=== PATIENT | female | born 1980 | race Caucasian/White ===

== ENCOUNTER → 2021-03-14 14:25 | Outpatient (CLI) | payer MEDICAID, SELFPAY ==
[2021-03-14 15:28] LABS: Coronavirus 19, PCR Not Detected (NotDetected); Influenza A, PCR Not Detected (NotDetected); Influenza B, PCR Not Detected (NotDetected)
== END ==
PROVIDERS: PCP Pediatrics; Visit Provider Nurse Practitioner Family
DX: Z11.52 Encounter for screening for COVID-19 (principal)
CPT/HCPCS: C9803; U0003; U0005

== ENCOUNTER → 2021-04-14 18:04 | Outpatient (CLI) | payer BC, MEDICAID, SELFPAY | PROVIDERS: PCP Pediatrics; Visit Provider Nurse Practitioner | DX: Z20.822 Contact with and (suspected) exposure to COVID-19 (principal) | CPT/HCPCS: C9803; U0003; U0005 ==

== ENCOUNTER 2021-04-16 18:05 | Emergency (ER) | payer BC, SELFPAY ==
[2021-04-16 19:12] VITALS: BP 121/75; PULSE 85; RESP 16; TEMP 37.1; O2SAT 98; BMI 32.3
--- NOTE | 2021-04-16 19:45 | HMH.EDUTC ---
[facility] [place] Clinical Impression: Exposure to COVID-19 virus, Viral syndrome Disposition: Home, Self-Care Condition on Discharge: Good Instructions: DI for COVID-19 (Suspected or Confirmed ), Preventing the Spread of Coronavirus Discharge Instructions Additional Instructions: Drink plenty of fluids. Take tylenol or ibuprofen for pain or fever. Take the medications as directed. Follow up with your regular doctor. GO TO THE ER FOR ANY WORSENING SYMPTOMS Quarantine until you know the results of your covid-19 test. Notify your school or workplace of your results and follow their instructions regarding return to work/school. The cough medication (promethazine dm) will make you drowsy, so don't drive or operate heavy machinery after taking it. Prescriptions: Albuterol Sulfate [Albuterol Sulfate Hfa] 2 puffs IH Q6HP PRN 30 Days #1 each PRN Reason: Shortness Of Breath Transmission Status: Pending to [facility] #[id number] Promethazine/Dextromethorphan [Promethazine-Dm Syrup] 5 ml PO Q6HP PRN #240 ml PRN Reason: Cough Transmission Status: Pending to [facility] #[id number] Ondansetron [Zofran 4mg ODT] 4 mg PO Q8HP PRN #20 tab PRN Reason: Nausea Transmission Status: Pending to [facility] #[id number] methylPREDNISolone [Medrol] 4 mg PO DIRECTED 6 Days #21 packet Transmission Status: Pending to [facility] #[id number] Referrals: Sukhwinder Selby [Primary Care Provider] - Forms: Work/School Release Time of Disposition: 19:58 Medical Decision Making - Medical Records Medical records reviewed: No: I reviewed the patient's medical records. - Coy Inquiry Pt receiving controlled substance: No Vital Signs: 04/16/21 19:12 Temperature 98.8 F Temperature Source Oral Pulse Rate [Left] 85 Respiratory Rate 16 Blood Pressure [Right Arm] 121/75 Blood Pressure Mean [Right Arm] 90 02 Sat by Pulse Oximetry 98 [facility] [place] H[place] - General Stated complaint: covid test sore throat,CARRERA,fever Time Seen by Provider: 04/16/21 19:46 Mode of Arrival: Ambulatory Source of Information: Patient Limitations: No Limitations Description of Symptoms (Recalled from Triage Doc. by RN): PT C/O A SEVERE CARRERA, FEVER AND OCCASIONAL SOA. INDIRECT EXPOSURE TO COVID. HEENT Symptoms (Recalled from RN notes): Yes Resp Symptoms (Recalled from RN notes): No Skin Symptoms (Recalled from RN notes): No MS Symptoms (Recalled from RN notes): No Functional Status (Recalled from RN notes): WNL - History of Present Illness Provider Complaint: She was exposed to covid-19 5 days ago. She started to feel bad 3 days ago and she tested negative for covid-19 then. She has progressively felt worse, so she needs to get retested. She denies significant shortness of breath. - Related Data Previous Rx's Medication Instructions Recorded Albuterol Sulfate [Albuterol 2 puffs IH Q6HP PRN 30 Days #1 each 04/16/21 Sulfate Hfa] Ondansetron [Zofran 4mg ODT] 4 mg PO Q8HP PRN #20 tab 04/16/21 Promethazine/Dextromethorphan 5 ml PO Q6HP PRN #240 ml 04/16/21 [Promethazine-Dm Syrup] methylPREDNISolone [Medrol] 4 mg PO DIRECTED 6 Days #21 04/16/21 packet Allergies Allergy/AdvReac Type Severity Reaction Status Date / Time No Known Allergies Allergy Verified 04/16/21 19:15 - Worker's Comp Is this a Worker's Comp case?: No [facility] History - Hepatitis A Screen Drug use history?: No High risk sexual behaviors?: No History of sexually transmitted infection?: No Currently employed?: No Childcare worker?: No Do you have indoor plumbing?: Yes Do you have electricity?: Yes Attestation statement:: This patient has been screened for Hepatitis A risk factors. I have reviewed the patient's past medical history: Yes ROS Obtained: Yes All systems reviewed & no additional complaints - Constitutional Constitutional: Reports as per HPI - Eyes Eyes: Denies eye discharge - ENT Ears, Nose, Mouth, and Throat: Re
[2021-04-16 20:03] VITALS: BP 121/75; PULSE 85; RESP 16; TEMP 37.1
== END 2021-04-16 20:04 | disposition home or self-care (01) ==
PROVIDERS: Emergency Provider Nurse Practitioner Family; PCP Pediatrics
DX: Z20.822 Contact with and (suspected) exposure to COVID-19 (principal); B34.9 Viral infection, unspecified
CPT/HCPCS: 99202; C9803; G0463; U0003; U0005

== ENCOUNTER → 2021-05-15 11:39 | Outpatient (CLI) | payer BC, SELFPAY ==
[2021-05-15 13:48] LABS: Blood Urea Nitrogen 14 mg/dl (7-17); Calcium 8.8 mg/dl (8.4-10.2); Carbon Dioxide 25 mmol/L (22.0-30.0); Estimated Glomerular Filt Rate 70 ml/min (>60); GFR (African American) 84 ML/MIN (>60); Glucose 83 mg/dl (74-100)
[2021-05-15 13:57] LABS: Anion Gap 13.5 mEq/L (5-15); Chloride 105 mmol/L (98-107); Potassium 4.5 mmoL/L (3.5-5.1); Sodium 139 mmol/L (136-145)
[2021-05-15 20:15] LABS: Basophils % 0.4 % (0.1-2.0); Eosinophils # 0.1 K/mm3 (0.0-0.4); Eosinophils % 0.9 % (0.1-12.0); Hematocrit 40.5 % (37.0-47.0); Hemoglobin 13.5 g/dL (12.2-16.2); Lymphocytes % 24.4 % (10-50); Mean Corpuscular HGB Conc 33.3 g/dL (31.8-35.4); Mean Corpuscular Hemoglobin 28.4 pg (27.0-31.2); Mean Corpuscular Volume 85.5 fl (81-99); Mean Platelet Volume 8.7 fl (7.4-10.4); Monocytes # 0.4 K/mm3 (0.1-1.0); Neutrophils # 5.6 K/mm3 (1.8-7.8); Neutrophils % 69.2 % (37.0-80.0); Platelet Count 289 K/mm3 (142-424); Red Blood Count 4.74 M/mm3 (4.20-5.40); Red Cell Distribution Width 14.9 % (11.5-17.5); White Blood Count 8.1 K/mm3 (4.8-10.8)
== END ==
PROVIDERS: Visit Provider Surgery
DX: Z01.812 Encounter for preprocedural laboratory examination (principal); Z11.52 Encounter for screening for COVID-19
CPT/HCPCS: 36415; 80048; 85025; C9803; U0003; U0005

== ENCOUNTER → 2022-03-10 12:22 | Outpatient (CLI) | payer BC, SELFPAY | PROVIDERS: PCP Nurse Practitioner Family; Visit Provider Nurse Practitioner Family | DX: G47.30 Sleep apnea, unspecified (principal); R06.83 Snoring | CPT/HCPCS: G0399 ==

== ENCOUNTER → 2022-08-19 09:34 | Outpatient (CLI) | payer BC, MEDICAID, SELFPAY ==
--- NOTE | 2022-08-19 09:38 | US_ITS ---
FINAL REPORT TECHNIQUE: Real-time grayscale and color ultrasound of the thyroid was performed. CLINICAL HISTORY: NECK DISCOMFORT COMPARISON: None FINDINGS: The thyroid gland is mildly enlarged and measures 49 mm on the right and 52 mm on the left. The isthmus measures 3 mm. Nodules: Right 8 x 11 x 7 mm solid hypoechoic TR 4 nodule. Right 7 x 6 x 5 mm solid hypoechoic TR 4 nodule. Left 7 x 7 x 6 mm solid hypoechoic TR 4 nodule. Left 7 x 6 x 4 mm solid hypoechoic TR 4 nodule. IMPRESSION: Right TR 4 nodule measuring 11 mm. Recommend 12 month follow-up. Reviewed, Interpreted and Dictated by Conor Greenwood III, MD Transcribed by Ninoska Wolff Authenticated and [facility]
[2022-08-19 10:47] LABS: Basophils % 0.4 % (0.1-2.0); Eosinophils # 0.1 K/mm3 (0.0-0.4); Hematocrit 43.2 % (37.0-47.0); Hemoglobin 14.2 g/dL (12.2-16.2); Lymphocytes # 1.7 K/mm3 (0.7-4.5); Lymphocytes % 23.7 % (10-50); Mean Corpuscular HGB Conc 32.8 g/dL (31.8-35.4); Mean Corpuscular Hemoglobin 29.7 pg (27.0-31.2); Mean Corpuscular Volume 90.6 fl (81-99); Mean Platelet Volume 8.2 fl (7.4-10.4); Monocytes # 0.3 K/mm3 (0.1-1.0); Monocytes % 4.1 % (1.7-9.3); Neutrophils # 5.1 K/mm3 (1.8-7.8); Neutrophils % 70.8 % (37.0-80.0); Platelet Count 300 K/mm3 (142-424); Red Blood Count 4.77 M/mm3 (4.20-5.40); Red Cell Distribution Width 13.6 % (11.5-17.5); White Blood Count 7.1 K/mm3 (4.8-10.8)
[2022-08-19 11:09] LABS: Hemoglobin A1C 5.2 % (4.0-6.0)
[2022-08-19 11:22] LABS: Alanine Aminotransferase 28 U/L (12-78); Albumin Level 4.4 g/dl (3.5-5.0); Albumin/Globulin Ratio 1.9 (1.1-1.8); Alkaline Phosphatase 81 U/L (38-126); Aspartate Amino Transferase 28 U/L (14-36); Bilirubin,Total 0.5 mg/dl (0.2-1.3); Blood Urea Nitrogen 18 mg/dl (7-17); Calcium 9.1 mg/dl (8.4-10.2); Carbon Dioxide 29 mmol/L (22.0-30.0); Estimated Glomerular Filt Rate 69 ml/min (>60); GFR (African American) 84 ML/MIN (>60); Globulin 2.3 g/dL (1.3-3.2); Glucose 97 mg/dl (74-100); Total Protein,Serum 6.7 g/dl (6.3-8.2)
[2022-08-19 11:53] LABS: Thyroid Stimulating Hormone 0.02 uIU/mL (0.465-4.68)
[2022-08-19 14:28] LABS: Anion Gap 16.8 mEq/L (5-15); Chloride 100 mmol/L (98-107); Potassium 4.8 mmoL/L (3.5-5.1); Sodium 141 mmol/L (136-145)
[2022-08-19 17:02] LABS: Free T4 (Free Thyroxine) 0.85 ng/dl (0.78-2.19)
== END ==
PROVIDERS: PCP Nurse Practitioner Family; Visit Provider Nurse Practitioner Family
DX: M54.2 Cervicalgia (principal); E01.0 Iodine-deficiency related diffuse (endemic) goiter; E66.9 Obesity, unspecified; Z68.35 Body mass index [BMI] 35.0-35.9, adult; Z86.39 Personal history of other endocrine, nutritional and metabolic disease
CPT/HCPCS: 36415; 76536; 80053; 83036; 84439; 84443; 85025

== ENCOUNTER 2023-01-26 10:00 | Outpatient (RCR) | payer BC, MEDICAID, SELFPAY ==
--- NOTE | 2022-11-17 15:07 | HMH.OTOPEV ---
OT Inpatient Evaluation Rehab OT Outpatient Eval Start: 11/17/22 14:49 Freq: Status: Active Protocol: Document 11/17/22 14:50 LINGMARVIN (Rec: 11/17/22 15:07 [email or web address] [id number]) E-signed By Brittanie Barnett, OT Outpatient Therapy Subjective History Subjective History 42 year old female referred to skilled OP OT services for R elbow pain. Patient stated to have pain for the past year with recieving cortisone shot x2 every 6 months with relief. Patient exhibit WFL of B UE WFL. 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 Chief Complaint Pain Symptom Type Ache Symptoms Relieved By Nothing Symptoms Aggravated By Physical Activity Prior Functional Limitations None Current Functional Limitations Reaching,Lifting,Recreation Activity Symptom Description Constant and Continuous Level of pain today (0-10) 5 Pain scale - at its best (0-10) 5 Pain scale - at its worst (0-10) 10 Wrist/Hand Eval Dog Control Officer/Pinch Strength Right Dog Control Officer Strength Measurement (lbs) 25 Left Dog Control Officer Strength Measurement (lbs) 40 OT Outpatient Assessment Impairments Problems/Impairments Impaired Strength Prognosis Rehab Potential Good Clinical Impression Consistent with Diagnosis Yes Short Term Goals Number of Weeks 2 Increase Strength Yes: Improve R hand cook fruit: 30# Decrease Subjective C/O Pain Yes: 8/10 pain at worst Patient to be Ind w/ Advanced HEP Yes: Strengthening Color Straining Bag Washer Goals Number of Weeks 4 Increase Strength Yes: Improve R hand cook fruit: 35# Decrease Subjective C/O Pain Yes: 6/10 pain at worst Patient to be Ind w/ Advanced HEP Yes: Advance strengthening Outpatient Therapy Plan of Care Treatment Plan May Include Therapeutic Exercise Including Home Yes Exercise Program Manual Therapy Techniques Yes Therapeutic Activities to Return to Yes Previous Functional/Work Level Thermal Modalities Yes Electrical Stimulation Yes Ultrasound/Phonophoresis Yes Iontophoresis Yes Eval/Re-Eval Yes Aquatic Therapy Yes Frequency Times per week 1-2x/wk Duration Number of Weeks 4 weeks Addendums This patient is a candidate for social No or vocational rehab? Patient/Guardian verbally acknowledges Yes unde
== END 2023-01-26 10:05 | disposition home or self-care (01) ==
LOC: OT 10:00
PROVIDERS: PCP Nurse Practitioner Family; Visit Provider Nurse Practitioner Family
DX: M77.11 Lateral epicondylitis, right elbow (principal)
CPT/HCPCS: 97010; 97014; 97035; 97110; 97140; 97164; 97165; G0283

== ENCOUNTER 2023-02-02 09:00 | Outpatient (RCR) | payer BC, MEDICAID, SELFPAY ==
--- NOTE | 2022-11-02 18:18 | HMH.PTOPEV ---
PT Outpatient Evaluation Rehab PT Outpatient Evaluation Start: 11/02/22 17:01 Freq: Status: Active Protocol: Document 11/02/22 17:01 ROMARIO (Rec: 11/02/22 18:18 ROMARIO [id number]) E-signed By Nia Snow PT Outpatient Therapy Subjective History Subjective History Pt is a 42 y/o female who reports chronic right-sided low back pain that refers to the right posterior gluteal region for over a year. Pt denies known trauma or injury. Pt denies having imaging to date but reports she is getting a lumbar MRI at [facility] on 11/25/22. Pt reports her low back feels stiff and her posterior hip feels tight like there is a knot in it. Pt denies distal symptoms/paresthesia or b/b dysfunction. 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 Pt reports she has tried healthcare architect, deep tissue massage, stretching and foam rolling with minimal relief. Pt reports she was prescribed a muscle relaxer which she takes as needed which does help with pain but makes her sleepy . Pt reports she was running and lifting weights prior to back pain but is unable to participate in such activities now. Occupation: Dental Hygienist Chief Complaint Pain,Stiff Symptom Type Throb,Dull Symptoms Relieved By Heat,Ice,Prescription Meds Symptoms Aggravated By Sitting,Bending/Stooping, Physical Activity,Walking, Lifting Prior Functional Limitations None Current Functional Limitations Lifting,Driving,Sleeping, Standing,Sitting,Walking Symptom Description Constant but Variable Level of pain today (0-10) 6 Pain scale - at its best (0-10) 3 Pain scale - at its worst (0-10) 10 Lumbopelvic Eval Posture Lumbar Spine Posture Standing Position Neutral Palapation tenderness right para
--- NOTE | 2022-12-22 08:37 | HMH.RHREAS ---
Rehab Reassessment Rehab OP Re-assessment Start: 11/02/22 17:01 Freq: Status: Active Protocol: Document 12/22/22 08:29 LUIS MIGUEL (Rec: 12/22/22 08:36 LUIS MIGUEL [id number]) E-signed By Marcial Orellana, PT Oswestry Index Section 1 Pain Intensity The pain is mild and does not vary much Section 2 Personal Care (Washing,Dresing) change my way of washing or dressing in order to avoid pain Section 3 Lifting lifting heavy weights off the floor, but I can manage light to medium Section 4 Walking I have no pain when walking Section 5 Sitting I can sit in any chair for as long as I like Section 6 Standing I have some pain on standing, but it does not increase with time Section 7 Sleeping I get pain in bed, but it does not prevent me from sleeping well Section 8 Social Life My social life is normal but increases the degree of pain Section 9 Traveling I get some pain when traveling , but none of my usual forms of travel m Section 10 Changing Degreee of Pain My pain is getting better Score and Risk Level Oswestry Sc 9 Oswestry Risk Level Mild Disability Rehab Re-assessment Subjective Subjective Pt reports significant relief intermittently following dry needling of the right hip, 'I was more or less pain free for about 2 weeks after the last time. I went back to working out.' Pt now reports some return of s/s, pain @6/10 on VAS Objective Objective Notes SERG: 9 TTP: RIGHT GLUT MED,MAX 1-2/4 MMT: RIGHT HIP FLX,ABD,ADD,EXT WFL LUMBAR AROM: WFL ALL DIRECTIONS GAIT: MILDLY ANTALGIC ON LEVEL TERRAIN Assessment Progress Assessment Progressing as Expected Assessment Notes IMPROVED OSWESTRY, TTP, AROM, AND STRENGTH Patient goals met STG'S 06/29
== END 2023-02-02 09:05 | disposition home or self-care (01) ==
LOC: PT 09:00
PROVIDERS: PCP Nurse Practitioner Family; Visit Provider Nurse Practitioner Family
DX: M54.50 Low back pain, unspecified (principal); M54.41 Lumbago with sciatica, right side
CPT/HCPCS: 20560; 97010; 97014; 97110; 97140; 97163; 97164; G0283